=== PATIENT | male | born 1985 | race African-American/Black ===

== ENCOUNTER 2017-11-13 22:28 | Emergency (ER) | payer MEDICAID ==
[~2017-11-13] VITALS: Ht 165.1 cm; Wt 84.0 kg
[2017-11-14] MEDS ORDERED: ACETAMINOPHEN 325MG TABLET PO STA (02:35)
[2017-11-14 02:57] LABS: BASOPHILS % 0.5 % (0.0-2.0); EOSINOPHILS % 0.3 % (0.0-5.0); HEMATOCRIT. 46.7 % (42.0-52.0); HEMOGLOBIN. 16.2 g/dL (14.0-18.0); LYMPHOCYTES % 36.7 % (20.0-50.0); MEAN PLATELET VOLUME 8.5 fl (7.4-10.4); MONOCYTES % 8.3 % (2.0-8.0); NEUTROPHILS % 54.2 % (40.0-76.0); PLATELET 218 x1000/uL (130-400); RED BLOOD CELL COUNT 4.92 mill/uL (4.7-6.1); RED CELL DISTRIBUTION WIDTH 13.5 % (11.6-14.6)
[2017-11-14 03:00] LABS: CLARITY URINE CLEAR (CLEAR); COLOR URINE YELLOW (YELLOW); KETONES URINE NEGATIVE (NEGATIVE); LEUKOCYTE ESTERASE URINE 1+ (NEGATIVE); NITRITE URINE NEGATIVE (NEGATIVE); OCCULT BLOOD URINE NEGATIVE (NEGATIVE); PROTEIN URINE NEGATIVE (NEGATIVE); SPECIFIC GRAVITY URINE 1.026 (1.005-1.030)
[2017-11-14 03:02] LABS: CHLORIDE 106 mEq/L (98-107)
[2017-11-14 03:09] LABS: *AMPHETAMINES SCREEN URINE NEGATIVE (NEGATIVE); *BARBITURATES SCREEN URINE NEGATIVE (NEGATIVE); *BENZODIAZEPINES SCREEN URINE NEGATIVE (NEGATIVE); CANNABINOID URINE SCREEN PRESUMTIVE POSITIVE (NEGATIVE); METHADONE URINE SCREEN NEGATIVE (NEGATIVE); OPIATES URINE SCREEN NEGATIVE (NEGATIVE); PHENCYCLIDINE URINE SCREEN NEGATIVE (NEGATIVE)
[2017-11-14 03:30] LABS: *COCAINE SCREEN URINE NEGATIVE (NEGATIVE)
[2017-11-14 05:10] VITALS: BP 116/69
== END 2017-11-14 10:22 | disposition home or self-care (01) ==
LOC: ER 11-14 10:16
DX: R51 Headache (principal); N39.0 Urinary tract infection, site not specified; F17.200 Nicotine dependence, unspecified, uncomplicated; J45.909 Unspecified asthma, uncomplicated
CPT/HCPCS: 36415; 80053; 80305; 81003; 85025; 99284

== ENCOUNTER 2019-05-06 19:44 | Emergency (ER) | payer MEDICAID ==
[~2019-05-06] VITALS: Ht 165.1 cm; Wt 95.0 kg
[2019-05-06 21:15] VITALS: BP 127/74
[2019-05-06] MEDS ORDERED: KETOROLAC 60MG/2ML VIAL IM ONE (21:15)
== END 2019-05-06 22:56 | disposition home or self-care (01) ==
LOC: ER 19:44
DX: S93.402A Sprain of unspecified ligament of left ankle, initial encounter (principal); J45.909 Unspecified asthma, uncomplicated; F17.210 Nicotine dependence, cigarettes, uncomplicated; Y93.02 Activity, running; Y93.89 Activity, other specified; Y92.89 Other specified places as the place of occurrence of the external cause; Y99.8 Other external cause status
CPT/HCPCS: 73610; 96372; 99283; 99406; J1885